=== PATIENT | male | born 1960 | race Caucasian/White ===

== ENCOUNTER 2019-08-14 13:06 | Emergency (ER) | payer MEDICARE ==
[2019-08-14] MEDS ORDERED: MORPHINE SULFATE 4 MG INJ IM ONE (13:29)
[2019-08-14] MEDS ORDERED: Zofran 4 MG/2 ML VIAL IV ONE ×2 (13:30→15:47)
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
[2019-08-14 13:44] LABS: Absolute Neutrophil Ct (ANC) 6.84 (1.4-6.9); BASOPHIL % 0.3 % (0.0-0.4); Basophil (Absolute #) 0.03 (0-0.4); Eosinophil % 1.6 % (0.00-5.0); Eosinophil (Absolute #) 0.16 (0-0.5); Hematocrit 46.4 % (42-50); Hemoglobin 15.9 gm/dl (12.5-18.0); Lymphocyte (Absolute #) 2.19 (1.0-4.6); Lymphocytes % 21.9 % (24.0-44.0); Mean Cell Volume 94.3 fl (78-100); Mean Corpuscular Hemoglobin 32.3 pg (26-32); Mean Corpuscular Hgb Concent. 34.3 g/dl (32-36); Mean Platelet Volume 10.3 fl (7.5-11.0); Monocyte (Absolute #) 0.77 (0.0-1.3); Monocytes % 7.7 % (0.0-12.0); Neutrophil % 68.5 % (36.0-66.0); Platelet Count 225 K/mm3 (150-450); Red Blood Count 4.92 M/mm3 (4.1-5.6); Red Cell Distribution Width 13.1 % (11.5-14.0)
[2019-08-14] MEDS ORDERED: MORPHINE SULFATE 4 MG INJ ONE (13:54)
[2019-08-14] MEDS ORDERED: Zofran 4 MG/2 ML VIAL ONE ×2 (13:54→15:49)
[2019-08-14 13:56] LABS: ALBUMIN 4.1 g/dL (3.5-5.0); ALKALINE PHOSPHATASE 86 U/L (38-126); BLOOD UREA NITROGEN 23 mg/dL (9-20); CHLORIDE 100 mmol/L (98-107); Calcium 9.7 mg/dL (8.4-10.2); Carbon Dioxide 28 mmol/L (22-30); Creatinine 1 1.08 mg/dL (0.66-1.25); Glucose 128 mg/dL (74-106); Potassium 3.6 mmol/L (3.5-5.1); SGOT/AST 30 U/L (17-59); SGPT/ALT 18 U/L (0-50); SODIUM 136 mmol/L (137-145); Total Protein 7.2 g/dL (6.3-8.2)
[2019-08-14] MEDS ORDERED: ROCEPHIN 1 Gm-D5w 50 ml Bag** 1 G/50 ML IVPB IV STA (15:15)
[2019-08-14] MEDS ORDERED: CLEOCIN 150 MG CAPSULE PO ONE (15:16)
[2019-08-14] MEDS ORDERED: ROCEPHIN 1 Gm-D5w 50 ml Bag** 1 G/50 ML IVPB IV ONE (15:27)
[2019-08-14] MEDS ORDERED: CLEOCIN 150 MG CAPSULE ONE (15:27)
[2019-08-14] MEDS ORDERED: Adacel Vial IM ONE ×2 (15:31→15:41)
[2019-08-14] MEDS ORDERED: BENADRYL 50 MG/ML IV ONE (15:46)
[2019-08-14] MEDS ORDERED: BENADRYL 50 MG/ML ONE (15:49)
[2019-08-14] MEDS ORDERED: Sodium Chloride 0.9% 1000 ML 1,000 ML ONE (16:03)
[2019-08-14] MEDS ORDERED: solu-MEDROL 125 MG ONE (16:05)
[2019-08-14] MEDS ORDERED: Pepcid 20 MG VIAL IV ONE ×3 (16:05→16:17)
[2019-08-14] MEDS ORDERED: solu-MEDROL 125 MG IV ONE (16:18)
[2019-08-14] MEDS ORDERED: Sodium Chloride 0.9% 1000 ML 1,000 ML IV STA (16:23)
[2019-08-14 18:35] VITALS: BP 103/62; O2SAT 97
[2019-08-14 19:38] VITALS: PULSE 80
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
== END 2019-08-14 19:52 | disposition home or self-care (01) ==
LOC: ED 13:06
DX: M25.561 Pain in right knee (principal); L08.9 Local infection of the skin and subcutaneous tissue, unspecified; S80.211A Abrasion, right knee, initial encounter; T78.40XA Allergy, unspecified, initial encounter; Z72.0 Tobacco use; M25.562 Pain in left knee; M25.551 Pain in right hip; W18.30XS Fall on same level, unspecified, sequela; M19.90 Unspecified osteoarthritis, unspecified site
CPT/HCPCS: 36000; 36415; 73564; 80053; 83605; 85025; 86141; 87040; 90471; 90715; 96365; 96372; 96374; 96375; 96376; 99285; 99291; 99292; J0696; J1200; J2270; J2405; J2930; L1830; A9270-GY

== ENCOUNTER 2020-09-27 18:59 | Emergency (ER) | payer MEDICARE ==
[2020-09-27 19:21] VITALS: BP 170/104; PULSE 91; O2SAT 99
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
== END 2020-09-27 19:45 | disposition left against medical advice (07) ==
LOC: ED 18:59
DX: L02.414 Cutaneous abscess of left upper limb (principal); M25.522 Pain in left elbow; M25.561 Pain in right knee; Z79.899 Other long term (current) drug therapy
CPT/HCPCS: 99283